=== PATIENT | female | born 1980 | race African-American/Black ===

== ENCOUNTER 2017-11-14 16:18 | Emergency (ER) | payer OTHER, SELFPAY ==
[2017-11-14] MEDS: METHOCARBAMOL 500 MG TAB PO (19:10)
[2017-11-14] MEDS: IBUPROFEN 800 MG TAB PO (19:10)
== END 2017-11-14 19:17 | disposition home or self-care (01) ==
LOC: M ED 16:18
DX: S39.012A Strain of muscle, fascia and tendon of lower back, initial encounter (principal); X50.0XXA Overexertion from strenuous movement or load, initial encounter; Y92.099 Unspecified place in other non-institutional residence as the place of occurrence of the external cause; Y93.F9 Activity, other caregiving; Y99.0 Civilian activity done for income or pay; Z79.899 Other long term (current) drug therapy
CPT/HCPCS: 99282

== ENCOUNTER → 2018-02-16 | Outpatient (REF) | payer OTHER ==
[~2018-02-16] MED LIST: IBUP80TA PO; METF500T13 PO; ROBA500T PO
[2018-02-16 22:18] LABS: APPEARANCE, URINE CLOUDY (CLEAR); BACTERIA, URINE AUTO 1+ (NEGATIVE); BILIRUBIN, URINE AUTO NEGATIVE (NEGATIVE); BLOOD, URINE BLOOD 1+ (NEGATIVE); COLOR, URINE YELLOW (YELLOW); GLUCOSE, URINE (UA) AUTO NEGATIVE (NEGATIVE); KETONE, URINE AUTO NEGATIVE (NEGATIVE); LEUKOCYTE ESTERASE, URINE AUTO 2+ (NEGATIVE); NITRITE, URINE AUTO NEGATIVE (NEGATIVE); PROTEIN, URINE AUTO 1+ mg/dL (NEGATIVE); RBC, URINE AUTO 35 /HPF (0-3); SPECIFIC GRAVITY URINE AUTO 1.017 (1.002-1.035); SQUAMOUS EPITHELIAL CELL UR AU 5 /HPF (0-6); WBC, URINE AUTO 135 /HPF (0-3)
== END ==
LOC: M LAB REF 10:08
PROVIDERS: ATTEND Physician Assistant
DX: N39.0 Urinary tract infection, site not specified (principal)

== ENCOUNTER → 2018-05-16 | Outpatient (REF) | payer OTHER, MEDICAID ==
[2018-05-16 13:23] LABS: BASO # 0.1 10^3/uL (0.0-0.2); BASO % 0.5 % (0.0-1.0); EOS # 0.2 10^3/uL (0.0-0.50); HEMATOCRIT 42.7 % (36.0-47.0); HEMOGLOBIN 13.9 g/dl (12.0-15.5); LYMPH # 3.2 10^3/uL (1.5-4.5); LYMPH % 20.3 % (24.0-44.0); MEAN CORPUSCULAR HEMOGLOBIN 29.8 pg (27.0-33.0); MEAN CORPUSCULAR HGB CONC 32.6 g/dl (32.0-36.5); MEAN CORPUSCULAR VOLUME 91.4 fl (80.0-96.0); MONO % 6.6 % (0.0-5.0); NEUTROPHILS # 11.1 10^3/uL (1.8-7.7); PLATELET COUNT, AUTOMATED 384 10^3/uL (150-450); RED BLOOD COUNT 4.67 10^6/uL (4.00-5.40); WHITE BLOOD COUNT 15.6 10^3/uL (4.0-10.0)
[2018-05-16 13:38] LABS: ALBUMIN 3.7 GM/DL (3.2-5.2); ALT/SGPT 12 U/L (12-78); BILIRUBIN,TOTAL 0.3 MG/DL (0.2-1.0); BLOOD UREA NITROGEN 11 MG/DL (7-18); CALCIUM LEVEL 8.8 MG/DL (8.5-10.1); CARBON DIOXIDE LEVEL 25 MEQ/L (21-32); CHLORIDE LEVEL 109 MEQ/L (98-107); CHOLESTEROL LEVEL 135 MG/DL (<200); CHOLESTEROL RISK RATIO 2.812 (<5); CREATININE FOR GFR 0.92 MG/DL (0.55-1.30); FREE T4 0.96 NG/DL (0.76-1.46); GLOMERULAR FILTRATION RATE > 60.0 (>60); GLUCOSE, FASTING 227 MG/DL (70-100); HDL CHOLESTEROL 48 MG/DL (>40); LDL CHOLESTEROL 73 MG/DL (<100); NON-HDL-C 87 MG/DL; POTASSIUM SERUM 4.6 MEQ/L (3.5-5.1); SODIUM LEVEL 140 MEQ/L (136-145); THYROID STIMULATING HORMONE 0.797 uIU/ML (0.358-3.740); TOTAL 25(OH) VITAMIN D 11.8 NG/ML (30.0-100.0); TOTAL PROTEIN 6.9 GM/DL (6.4-8.2); TRIGLYCERIDES LEVEL 68 MG/DL (<150)
[2018-05-16 14:16] LABS: HEMOGLOBIN A1c 6.6 %
[2018-05-16 14:38] LABS: APPEARANCE, URINE CLOUDY (CLEAR); BACTERIA, URINE AUTO 2+ (NEGATIVE); BILIRUBIN, URINE AUTO NEGATIVE (NEGATIVE); BLOOD, URINE BLOOD 1+ (NEGATIVE); COLOR, URINE YELLOW (YELLOW); GLUCOSE, URINE (UA) AUTO 2+ mg/dL (NEGATIVE); KETONE, URINE AUTO NEGATIVE (NEGATIVE); LEUKOCYTE ESTERASE, URINE AUTO 3+ (NEGATIVE); MUCUS, URINE LARGE (NEGATIVE); NITRITE, URINE AUTO POSITIVE (NEGATIVE); PROTEIN, URINE AUTO 2+ mg/dL (NEGATIVE); RBC, URINE AUTO 1 /HPF (0-3); SPECIFIC GRAVITY URINE AUTO 1.026 (1.002-1.035); SQUAMOUS EPITHELIAL CELL UR AU 2 /HPF (0-6); URIC ACID CRYSTALS LARGE; UROBILINOGEN, URINE AUTO 0.2 mg/dL (0.0-2.0); WBC, URINE AUTO TNTC /HPF (0-3)
== END ==
LOC: M LAB REF 12:32
PROVIDERS: ATTEND Family Medicine
DX: Z13.228 Encounter for screening for other metabolic disorders (principal)

== ENCOUNTER → 2018-05-19 | Outpatient (REF) | payer OTHER, MEDICAID | LOC: M LAB REF 13:00 | PROVIDERS: ATTEND Family Medicine | DX: N39.0 Urinary tract infection, site not specified (principal) ==

== ENCOUNTER → 2018-06-13 | Outpatient (REF) | payer OTHER, MEDICAID ==
[2018-06-13 13:00] LABS: APPEARANCE, URINE CLOUDY (CLEAR); BACTERIA, URINE AUTO 1+ (NEGATIVE); BILIRUBIN, URINE AUTO NEGATIVE (NEGATIVE); BLOOD, URINE BLOOD 2+ (NEGATIVE); COLOR, URINE YELLOW (YELLOW); GLUCOSE, URINE (UA) AUTO NEGATIVE (NEGATIVE); KETONE, URINE AUTO NEGATIVE (NEGATIVE); LEUKOCYTE ESTERASE, URINE AUTO 3+ (NEGATIVE); MUCUS, URINE SMALL (NEGATIVE); NITRITE, URINE AUTO NEGATIVE (NEGATIVE); PROTEIN, URINE AUTO NEGATIVE (NEGATIVE); RBC, URINE AUTO 78 /HPF (0-3); SPECIFIC GRAVITY URINE AUTO 1.019 (1.002-1.035); SQUAMOUS EPITHELIAL CELL UR AU 15 /HPF (0-6); WBC, URINE AUTO 112 /HPF (0-3)
== END ==
LOC: M LAB REF 12:28
PROVIDERS: ATTEND Family Medicine
DX: N30.20 Other chronic cystitis without hematuria (principal)

== ENCOUNTER 2018-07-18 20:02 | Emergency (ER) | payer MEDICAID, OTHER ==
[~2018-07-18] VITALS: Ht 180.3 cm; Wt 90.9 kg
[2018-07-18] MEDS ORDERED: NS 1,000 ML IV ONE (22:45)
[2018-07-18 23:10] LABS: BASO # 0.1 10^3/uL (0.0-0.2); BASO % 0.4 % (0.0-1.0); EOS # 0.2 10^3/uL (0.0-0.50); EOS % 1.3 % (0.0-3.0); HEMATOCRIT 41.9 % (36.0-47.0); HEMOGLOBIN 14.2 g/dl (12.0-15.5); LYMPH # 3.5 10^3/uL (1.5-4.5); MEAN CORPUSCULAR HEMOGLOBIN 30.9 pg (27.0-33.0); MEAN CORPUSCULAR HGB CONC 33.9 g/dl (32.0-36.5); MEAN CORPUSCULAR VOLUME 91.1 fl (80.0-96.0); MONO # 1.7 10^3/uL (0.0-0.8); MONO % 10.4 % (0.0-5.0); NEUTROPHILS % 66.4 % (36.0-66.0); PLATELET COUNT, AUTOMATED 315 10^3/uL (150-450); WHITE BLOOD COUNT 16.6 10^3/uL (4.0-10.0)
[2018-07-18 23:12] LABS: VENOUS BASE EXCESS -3.7 (-2.0-2.0); VENOUS HCO3 20.1 MEQ/L (23.0-27.0); VENOUS O2 SATURATION 96.3 % (60.0-80.0); VENOUS PARTIAL PRESSURE O2 78.1 mmHg (30.0-50.0); VENOUS PH 7.402 UNITS (7.330-7.430); VENOUS STANDARD HCO3 21.4 MEQ/L; VENOUS TOTAL CO2 21.1 MEQ/L (24.0-28.0)
[2018-07-18] MEDS ORDERED: metFORMIN (GLUCOPHAGE) 500 MG TAB PO ONE (23:15)
[2018-07-18] MEDS ORDERED: BACTRIM 160MG/800MG DS TAB PO ONE (23:15)
[2018-07-18] MEDS ORDERED: BACT800T5 PO (23:21)
[2018-07-18] MEDS ORDERED: METF500T13 PO (23:21)
[2018-07-18 23:31] LABS: ALBUMIN 3.6 GM/DL (3.2-5.2); ALT/SGPT 14 U/L (12-78); BILIRUBIN,DIRECT < 0.1 MG/DL (0.0-0.2); BILIRUBIN,TOTAL 0.4 MG/DL (0.2-1.0); BLOOD UREA NITROGEN 10 MG/DL (7-18); CALCIUM LEVEL 8.6 MG/DL (8.5-10.1); CARBON DIOXIDE LEVEL 23 MEQ/L (21-32); CHLORIDE LEVEL 108 MEQ/L (98-107); CREATININE FOR GFR 0.76 MG/DL (0.55-1.30); GLOMERULAR FILTRATION RATE > 60.0 (>60); GLUCOSE, FASTING 222 MG/DL (70-100); HEMOGLOBIN A1c 8.7 %; LIPASE 183 U/L (73-393); POTASSIUM SERUM 3.8 MEQ/L (3.5-5.1); SODIUM LEVEL 139 MEQ/L (136-145); TOTAL PROTEIN 7.1 GM/DL (6.4-8.2)
[2018-07-18 23:49] VITALS: BP 100/57
== END 2018-07-18 23:54 | disposition home or self-care (01) ==
LOC: M ED 20:02
DX: N39.0 Urinary tract infection, site not specified (principal); E11.65 Type 2 diabetes mellitus with hyperglycemia; R11.0 Nausea; I10 Essential (primary) hypertension; F17.200 Nicotine dependence, unspecified, uncomplicated

== ENCOUNTER → 2018-08-02 | Outpatient (CLI) | payer OTHER ==
[~2018-08-02] MED LIST changes: +BACT800T5 PO
--- NOTE | 2018-08-02 10:00 | REP ---
RENAL AND BLADDER ULTRASOUND: Real-time sonographic evaluation of the kidneys performed. The kidneys are normal in size and echotexture, right kidney measuring 12.9 x 5.9 x 4.3 cm and left kidney 12.9 x 4.7 x 6.8 cm. There is no hydronephrosis bilaterally. In the lower pole of the left kidney, a large echogenic shadowing structure measures approximately 3.5 x 1.1 x 1.6 cm, which may represent a large calculus. No other renal stones are seen. There is no definite mass. Urinary bladder is not well distended and not well evaluated. No gross calculi are seen in the lumen. IMPRESSION: No hydronephrosis. Large structure in the lower pole collecting system likely represents a large calculus 3.5 x 1.1 x 1.6 cm. Electronically Signed by Kye Correa MD 08/02/2018 03:14 P
== END ==
LOC: M RAD 07:12
PROVIDERS: ATTEND Nurse Practitioner Family
DX: N39.0 Urinary tract infection, site not specified (principal); N28.89 Other specified disorders of kidney and ureter

== ENCOUNTER → 2018-08-04 | Outpatient (CLI) | payer OTHER ==
--- NOTE | 2018-08-04 11:39 | REP ---
URINARY BLADDER ULTRASOUND: Real-time sonographic evaluation of the bladder performed. The bladder measures 5.3 x 8.6 x 7.0 cm for a total volume of 208 mL. No bladder mass or calculus is seen. There are bilateral ureteral jets in the urinary bladder with Doppler color evaluation. After voiding, the postvoid residual is 8.5 mL, 4.1% of the original volume. IMPRESSION: Unremarkable bladder ultrasound as discussed above with very mild postvoid residual. Electronically Signed by Kye Correa MD 08/04/2018 12:08 P
== END ==
LOC: M RAD 10:35
PROVIDERS: ATTEND Nurse Practitioner Family
DX: N39.0 Urinary tract infection, site not specified (principal)

== ENCOUNTER → 2018-08-18 | Outpatient (REF) | payer OTHER ==
[2018-08-18 17:36] LABS: BASO # 0.1 10^3/uL (0.0-0.2); BASO % 0.6 % (0.0-1.0); EOS # 0.2 10^3/uL (0.0-0.50); HEMATOCRIT 43.9 % (36.0-47.0); HEMOGLOBIN 14.5 g/dl (12.0-15.5); LYMPH # 3.7 10^3/uL (1.5-4.5); LYMPH % 23.4 % (24.0-44.0); MEAN CORPUSCULAR HEMOGLOBIN 30.8 pg (27.0-33.0); MEAN CORPUSCULAR VOLUME 93.2 fl (80.0-96.0); MONO # 1.1 10^3/uL (0.0-0.8); MONO % 6.9 % (0.0-5.0); NEUTROPHILS # 10.6 10^3/uL (1.8-7.7); NEUTROPHILS % 67.7 % (36.0-66.0); PLATELET COUNT, AUTOMATED 354 10^3/uL (150-450); RED BLOOD COUNT 4.71 10^6/uL (4.00-5.40); WHITE BLOOD COUNT 15.7 10^3/uL (4.0-10.0)
[2018-08-18 17:39] LABS: APPEARANCE, URINE CLOUDY (CLEAR); BACTERIA, URINE AUTO 3+ (NEGATIVE); BILIRUBIN, URINE AUTO NEGATIVE (NEGATIVE); BLOOD, URINE BLOOD 2+ (NEGATIVE); COLOR, URINE YELLOW (YELLOW); GLUCOSE, URINE (UA) AUTO NEGATIVE (NEGATIVE); KETONE, URINE AUTO TRACE mg/dL (NEGATIVE); LEUKOCYTE ESTERASE, URINE AUTO 3+ (NEGATIVE); MUCUS, URINE SMALL (NEGATIVE); NITRITE, URINE AUTO POSITIVE (NEGATIVE); PROTEIN, URINE AUTO 1+ mg/dL (NEGATIVE); RBC, URINE AUTO 52 /HPF (0-3); SPECIFIC GRAVITY URINE AUTO 1.018 (1.002-1.035); SQUAMOUS EPITHELIAL CELL UR AU 5 /HPF (0-6); TRIPLE PHOSPHATE CRYSTALS SMALL; UROBILINOGEN, URINE AUTO 0.2 mg/dL (0.0-2.0); WBC, URINE AUTO TNTC /HPF (0-3)
[2018-08-18 17:51] LABS: ALBUMIN 3.7 GM/DL (3.2-5.2); ALT/SGPT 12 U/L (12-78); BILIRUBIN,TOTAL 0.4 MG/DL (0.2-1.0); BLOOD UREA NITROGEN 10 MG/DL (7-18); CALCIUM LEVEL 9.1 MG/DL (8.5-10.1); CARBON DIOXIDE LEVEL 25 MEQ/L (21-32); CHLORIDE LEVEL 113 MEQ/L (98-107); CHOLESTEROL LEVEL 129 MG/DL (<200); CHOLESTEROL RISK RATIO 3.394 (<5); CREATININE FOR GFR 0.87 MG/DL (0.55-1.30); GLOMERULAR FILTRATION RATE > 60.0 (>60); GLUCOSE, FASTING 112 MG/DL (70-100); HDL CHOLESTEROL 38 MG/DL (>40); LDL CHOLESTEROL 81 MG/DL (<100); NON-HDL-C 91 MG/DL; POTASSIUM SERUM 4.2 MEQ/L (3.5-5.1); SODIUM LEVEL 142 MEQ/L (136-145); THYROID STIMULATING HORMONE 0.751 uIU/ML (0.358-3.740); TOTAL 25(OH) VITAMIN D 16.9 NG/ML (30.0-100.0); TRIGLYCERIDES LEVEL 49 MG/DL (<150)
[2018-08-18 17:57] LABS: HEMOGLOBIN A1c 8.4 %
[2018-08-18 18:10] LABS: MAU/CREAT RATIO 71.5 MCG/MG (0.0-30.0)
== END ==
LOC: M LAB REF 16:10
PROVIDERS: ATTEND Family Medicine
DX: E11.9 Type 2 diabetes mellitus without complications (principal)

== ENCOUNTER → 2018-08-29 | Outpatient (REF) | payer OTHER ==
[~2018-08-29] MED LIST changes: +PERCOCET PO; +TRUL0.5I SC
[2018-08-29 13:28] LABS: AMORPHOUS SEDIMENT SMALL (NEGATIVE); APPEARANCE, URINE HAZY (CLEAR); BACTERIA, URINE AUTO 2+ (NEGATIVE); BILIRUBIN, URINE AUTO NEGATIVE (NEGATIVE); BLOOD, URINE BLOOD 3+ (NEGATIVE); COLOR, URINE YELLOW (YELLOW); GLUCOSE, URINE (UA) AUTO NEGATIVE (NEGATIVE); KETONE, URINE AUTO NEGATIVE (NEGATIVE); LEUKOCYTE ESTERASE, URINE AUTO 3+ (NEGATIVE); MUCUS, URINE SMALL (NEGATIVE); NITRITE, URINE AUTO NEGATIVE (NEGATIVE); PROTEIN, URINE AUTO NEGATIVE (NEGATIVE); RBC, URINE AUTO 101 /HPF (0-3); SPECIFIC GRAVITY URINE AUTO 1.014 (1.002-1.035); SQUAMOUS EPITHELIAL CELL UR AU 2 /HPF (0-6); UROBILINOGEN, URINE AUTO 0.2 mg/dL (0.0-2.0); WBC, URINE AUTO 58 /HPF (0-3)
== END ==
LOC: M LAB REF 12:26
PROVIDERS: ATTEND Family Medicine
DX: N39.0 Urinary tract infection, site not specified (principal)

== ENCOUNTER → 2018-08-31 | Outpatient (REF) | payer OTHER ==
[~2018-08-31] MED LIST changes: -PERCOCET PO; -TRUL0.5I SC
[2018-08-31 19:25] LABS: CHLAMYDIA DNA AMPLIFICATION NEGATIVE (NEGATIVE); GC DNA AMPLIFICATION NEGATIVE (NEGATIVE)
[2018-09-05 14:41] LABS: HPV HYBRID CAPTURE II Negative (Negative)
== END ==
LOC: M LAB REF 17:14
PROVIDERS: ATTEND Nurse Practitioner Family
DX: Z11.3 Encounter for screening for infections with a predominantly sexual mode of transmission (principal)

== ENCOUNTER → 2018-09-29 | Outpatient (CLI) | payer OTHER ==
--- NOTE | 2018-09-29 14:30 | REP ---
REASON: History of renal calculi. PRIORS: None. Lung bases are clear. In the left kidney, there is a large, probably developing staghorn calculus. There is minimal left-sided hydronephrosis. In the inferior pole of the right kidney, there is a 4 mm nonobstructing calculus. There is no hydroureter. There are no urinary bladder calcifications. Limited evaluation of the liver, gallbladder, spleen, pancreas, and adrenal glands show no gross abnormalities. There is no free fluid or free air in the abdomen or pelvis. Limited evaluation of the intra-abdominal and intrapelvic bowel loops and their mesenteries show no gross abnormalities. There is a rounded structure in the mid pelvis difficult to evaluate on this noncontrast-enhanced CT possibly representing uterine myomatous changes. Bone window technique through the examination shows the osseous structures to be within normal limits. IMPRESSION: 1. Large left-sided calculus as described above. 2. Tiny nonobstructing right nephrolith as described above. 3. Possible pelvic mass. Pelvic ultrasonography with both transvesical and transvaginal technique should be obtained. Electronically Signed by Nader Luong DO 09/29/2018 02:31 P
== END ==
LOC: M RAD 10:48
PROVIDERS: ATTEND Nurse Practitioner Family
DX: N20.0 Calculus of kidney (principal)

== ENCOUNTER → 2018-10-04 | Outpatient (REF) | payer OTHER | LOC: M SMT 13:19 | PROVIDERS: ATTEND Urology | DX: N39.0 Urinary tract infection, site not specified (principal); N20.0 Calculus of kidney ==

== ENCOUNTER → 2018-10-06 | Outpatient (CLI) | payer OTHER ==
[~2018-10-06] MED LIST changes: +PERCOCET PO; +TRUL0.5I SC
--- NOTE | 2018-10-06 13:53 | REP ---
Pelvic ultrasound including transabdominal, endovaginal and Doppler ultrasound assessment: The study is correlated with the abdomen pelvis CT dated 09/29/2018. The uterus is vertically oriented and normal size measuring 8.1 x 5.6 by 5.9 cm. The endometrium is homogeneous, except that there are two small hypoechoic areas in the endometrium on the left, one anteriorly measuring 8 mm and the other posteriorly measuring 11 mm. These are compatible with small fibroids. The endometrium is not thickened measuring 11 mm. Right ovary: The right ovary is normal size measuring 3.4-0.3 x 3.0 cm. There is no dominant mass or cyst. With color Doppler assessment there is vascular flow in the right ovary. Left ovary: Left ovary is normal size measuring 3.2 x 2.4-0.0 cm. There is no dominant mass or cyst. With color Doppler assessment there is vascular flow in the left ovary. Impression: There are too small uterine fibroids on the left. Otherwise, negative pelvic ultrasound. Electronically Signed by Kye Baer MD 10/06/2018 01:44 P
== END ==
LOC: M RAD 10:58
PROVIDERS: ATTEND Urology
DX: R19.00 Intra-abdominal and pelvic swelling, mass and lump, unspecified site (principal); D25.9 Leiomyoma of uterus, unspecified

== ENCOUNTER → 2018-11-13 | Outpatient (REF) | payer OTHER ==
[2018-11-13 13:30] LABS: ALBUMIN 3.7 GM/DL (3.2-5.2); ALT/SGPT 23 U/L (12-78); BILIRUBIN,TOTAL 0.2 MG/DL (0.2-1.0); BLOOD UREA NITROGEN 13 MG/DL (7-18); CALCIUM LEVEL 9.7 MG/DL (8.5-10.1); CARBON DIOXIDE LEVEL 27 MEQ/L (21-32); CHLORIDE LEVEL 111 MEQ/L (98-107); CHOLESTEROL LEVEL 137 MG/DL (<200); CHOLESTEROL RISK RATIO 3.261 (<5); CREATININE FOR GFR 0.95 MG/DL (0.55-1.30); GLOMERULAR FILTRATION RATE > 60.0 (>60); GLUCOSE, FASTING 96 MG/DL (70-100); HDL CHOLESTEROL 42 MG/DL (>40); LDL CHOLESTEROL 78 MG/DL (<100); NON-HDL-C 95 MG/DL; POTASSIUM SERUM 4.6 MEQ/L (3.5-5.1); SODIUM LEVEL 144 MEQ/L (136-145); TOTAL PROTEIN 7.3 GM/DL (6.4-8.2); TRIGLYCERIDES LEVEL 84 MG/DL (<150)
[2018-11-13 14:42] LABS: HEMOGLOBIN A1c 5.2 %
== END ==
LOC: M LAB REF 12:16
PROVIDERS: ATTEND Family Medicine
DX: E11.9 Type 2 diabetes mellitus without complications (principal)

== ENCOUNTER → 2018-11-13 | Outpatient (CLI) | payer OTHER ==
[2018-11-13 11:10] LABS: BASO # 0.1 10^3/uL (0.0-0.2); BASO % 0.5 % (0.0-1.0); EOS # 0.2 10^3/uL (0.0-0.5); EOS % 1.1 % (0.0-3.0); HEMATOCRIT 41.8 % (36.0-47.0); HEMOGLOBIN 13.7 g/dl (12.0-15.5); LYMPH # 4.1 10^3/uL (1.5-5.0); LYMPH % 23.3 % (24.0-44.0); MEAN CORPUSCULAR HEMOGLOBIN 29.8 pg (27.0-33.0); MEAN CORPUSCULAR HGB CONC 32.8 g/dl (32.0-36.5); MEAN CORPUSCULAR VOLUME 91.1 fl (80.0-96.0); MONO # 1.2 10^3/uL (0.0-0.8); MONO % 6.9 % (0.0-5.0); NEUTROPHILS # 11.9 10^3/uL (1.5-8.5); NEUTROPHILS % 67.6 % (36.0-66.0); PLATELET COUNT, AUTOMATED 462 10^3/uL (150-450); RED BLOOD COUNT 4.59 10^6/uL (4.00-5.40); WHITE BLOOD COUNT 17.6 10^3/uL (4.0-10.0)
[2018-11-13 11:21] LABS: INR 1.03; PARTIAL THROMBOPLASTIN TIME 30.4 SECONDS (25.0-38.4); PROTHROMBIN TIME 13.2 SECONDS (11.8-14.0)
[2018-11-13 11:30] LABS: BLOOD UREA NITROGEN 12 MG/DL (7-18); CALCIUM LEVEL 9.6 MG/DL (8.5-10.1); CARBON DIOXIDE LEVEL 27 MEQ/L (21-32); CHLORIDE LEVEL 107 MEQ/L (98-107); CREATININE FOR GFR 0.88 MG/DL (0.55-1.30); GLOMERULAR FILTRATION RATE > 60.0 (>60); GLUCOSE, FASTING 87 MG/DL (70-100); POTASSIUM SERUM 4.3 MEQ/L (3.5-5.1); SODIUM LEVEL 141 MEQ/L (136-145)
== END ==
LOC: M LAB 10:03
PROVIDERS: ATTEND Urology
DX: Z01.818 Encounter for other preprocedural examination (principal); N39.0 Urinary tract infection, site not specified; N20.0 Calculus of kidney

== ENCOUNTER 2018-11-16 06:58 | Inpatient (IN) | payer OTHER ==
[~2018-11-16] VITALS: Ht 180.3 cm; Wt 99.1 kg
[~2018-11-16 06:58] MED LIST changes: -PERCOCET PO
[2018-11-16] MEDS ORDERED: BACT800T5 PO (07:42)
[2018-11-16] MEDS ORDERED: fentaNYL 100 MCG/2 ML INJECTION (J3010) As Ordered ONE (07:42)
[2018-11-16] MEDS ORDERED: ISOVUE-300 61% 50ML VIAL (Q9967) As Ordered ONE (07:42)
[2018-11-16] MEDS ORDERED: LIDOCAINE 1% MDV 20ML VIAL As Ordered ONE (07:42)
[2018-11-16] MEDS ORDERED: MIDAZOLAM INJ 2 MG/2 ML VIAL (J2250) As Ordered ONE (07:42)
[2018-11-16] MEDS ORDERED: ceFAZolin 1GM INJ (J0690 PER 500MG) As Ordered ONE (07:45)
--- NOTE | 2018-11-16 07:50 | IRHP ---
[facility] IR Pre-Procedure H & P General Date of Service: Nov 16, 2018 Procedure: Same Day Surgery Interval History and Physical I have seen the patient and reviewed last H & P performed within 30 days. There is no significant interval change. History of Present Illness Chief Complaint The patient is a 38-year-old female admitted with a reason for visit of Left Kidney Sone. PRE-PROCEDURE DIAGNOSIS: left kidney stone HEART: normal rate. LUNGS: normal breathing at rest. ASA Classification ASA Classification: I-Healthy Mallampati Score: I NPO: Yes Problems with prior sedation: No Obstructive Sleep Apnea: No Plan moderate sedation Allergies Coded Allergies: No Known Allergies (Unverified , 11/14/17) Home Medications Scheduled Dulaglutide (Trulicity), 1.5 MG SC QWEEK, (Reported) Sulfamethoxazole/Trimethoprim (Bactrim Ds Tablet), 1 TAB PO BID, (Reported) Scheduled PRN Ibuprofen (Ibuprofen), 800 MG PO Q6H PRN for PAIN Discontinued Medications Sulfamethoxazole/Trimethoprim (Bactrim Ds Tablet), 1 TAB PO Q12H Discontinued Reason: Pt states not taking KIMBERLY ROBISON MD Nov 16, 2018 07:50
[2018-11-16] MEDS ORDERED: diphenhydrAMINE INJ 50MG/ML VIAL (J1200) As Ordered ONE (08:09)
--- NOTE | 2018-11-16 08:56 | POST-OPPD ---
Postoperative Procedure Note Date Of Procedure: Nov 16, 2018 Time Of Procedure: 08:55 PREOPERATIVE DIAGNOSIS: left kidney stone POSTOPERATIVE DIAGNOSIS: left kidney stone FINDINGS: left kidney stone PROCEDURE: NephU placement for PCNL access SURGEON: Kameron ANESTHESIA: moderate sedation ESTIMATED BLOOD LOSS: < 5 ml COMPLICATIONS: none POSTOPERATIVE CONDITION: stable KIMBERLY ROBISON MD Nov 16, 2018 08:56
[2018-11-16] MEDS ORDERED: ONDANSETRON 4MG/2ML VIAL (J2405) As Ordered ONE ×2 (09:04→15:19)
[2018-11-16] MEDS ORDERED: PERCOCET 5MG/325MG TAB As Ordered ONE ×2 (09:21→09:42)
[2018-11-16] MEDS ORDERED: PROMETHAZINE INJ 25 MG/ML VIAL (J2550) As Ordered ONE (10:23)
[2018-11-16] MEDS ORDERED: HYDROMORPHONE HCL 0.5 MG/ 0.5 ML SYRINGE (J1170 PER 1) IV PRN ×8 (13:00→21:15)
[2018-11-16] MEDS ORDERED: oxyBUTYnin *DITROPAN XL* 5 MG TABCR PO ONE (14:00)
--- NOTE | 2018-11-16 16:05 | REP ---
IR Percutaneous nephro ureteral stent catheter placement using fluoroscopy guidance. IR nephrostogram and ureterogram. IR PCNL access. IR moderate sedation. Clinical information: Left kidney stone. PCNL tomorrow with laser lithotripsy. Needs access for procedure. Physician: Dr Melo. Procedure: The patient was advised of the benefits, risks and alternatives of the procedure and informed consent was obtained. The time-out was performed with verification of the patient's name, MRN, site of procedure and type of procedure to be performed. The patient was positioned in the prone position on the angiographic table. The site was prepped and draped in the usual sterile fashion. Moderate sedation was performed by the physician including the presence of an independent trained observer who assisted in monitoring the patient's level of consciousness and physiologic status. Following the administration of fentanyl and Versed , the physician spent 45 minutes of face to face time with the patient. A mobile ui designer radiograph reveals staghorn calculus of the left kidney. The anticipated puncture site on the flank was anesthetized with lidocaine. Using fluoroscopy guidance, a lower pole luis was accessed with a 21 gauge Chiba needle. A nephrostogram and ureterogram was performed demonstrating no hydronephrosis or hydroureter. An 018 wire was then advanced into the collecting system. The needle was then exchanged for a non vascular introducer set. A glide wire in conjunction with a glide cath was used to catheterize the augustine ureter down to the bladder using fluoro guidance. Contrast injection confirms location in the collecting system and bladder. The glidewire was exchanged for an Amplatz wire which was advanced under fluoroscopy guidance through the catheter into the bladder. The sheath and catheter were removed. An 8 Finnish nephro ureteral stent catheter was then advanced over the wire into the bladder. The distal pigtail was formed and locked in position. A final nephrostogram ureterogram was performed confirming position of the pigtail in the bladder. No extravasation. The catheter was sutured in position with 2-0 Prolene and a sterile dressing was applied. The patient tolerated the procedure well and was returned to the PRU in stable condition. EBL: < 5 ml. Complications: None. Conclusion: 1. Nephrostogram and ureterogram demonstrate staghorn calculus in the left renal collecting system. 2. Successful left sided nephro ureteral stent catheter placement. Patient to follow up with urology tomorrow for stone procedure. Thank you for this referral. Electronically Signed by Magaly Melo MD 11/16/2018 04:04 P
[2018-11-16] MEDS ORDERED: ONDANSETRON 4MG/2ML VIAL (J2405) IV PRN (17:00)
[2018-11-16] MEDS ORDERED: PERCOCET 5MG/325MG TAB PO PRN ×2 (17:15→20:45)
[2018-11-16] MEDS ORDERED: PROMETHAZINE INJ 25 MG/ML VIAL (J2550) IV PRN (17:15)
[2018-11-16 18:50] VITALS: BP 136/87
[2018-11-16 20:30] VITALS: BP 137/87
[2018-11-16] MEDS: NS 1,000 ML IV SCH (20:34)
[2018-11-16 22:00] VITALS: BP 140/83
[2018-11-16] MEDS: PERCOCET 5MG/325MG TAB PO PRN (22:01)
[2018-11-17] VITALS (8 sets, daily range): BP systolic 119–140; BP diastolic 72–86
[2018-11-17] MEDS: NS 1,000 ML IV SCH ×4 (04:43→22:30)
[2018-11-17] MEDS ORDERED: oxyBUTYnin *DITROPAN XL* 5 MG TABCR PO SCH (09:00)
[2018-11-17] MEDS ORDERED: ROCURONIUM BROMIDE 50 MG/5 ML VIAL ONE ×2 (09:22→13:09)
[2018-11-17] MEDS ORDERED: PROPOFOL 200 MG/20 ML VIAL ONE (09:22)
[2018-11-17] MEDS ORDERED: dexameTHASONE 4 MG/ML 1ML VIAL (J1100) ONE (09:22)
[2018-11-17] MEDS ORDERED: LIDOCAINE 2% INJ 100 MG/5 ML SDV (FOR ANES.) ONE (09:22)
[2018-11-17] MEDS ORDERED: ONDANSETRON 4MG/2ML VIAL (J2405) ONE (09:22)
[2018-11-17] MEDS ORDERED: fentaNYL 100 MCG/2 ML INJECTION (J3010) ONE ×3 (09:26→13:26)
[2018-11-17] MEDS ORDERED: MIDAZOLAM INJ 2 MG/2 ML VIAL (J2250) ONE (09:26)
[2018-11-17] MEDS ORDERED: CONRAY-60 60% 50ML VIAL (Q9961) ONE (10:41)
--- NOTE | 2018-11-17 11:02 | HPEPDOC ---
General Date of Admission Nov 16, 2018 at 18:00 Date of Service: Nov 17, 2018 Chief Complaint The patient is a 38-year-old female admitted with a reason for visit of Left Kidney Sone. History of Present Illness This is a 38 y/o F w/ a large staghorn left kidney stone, here for a left percutaneous nephrolithotomy (PCNL). She underwent successful left nephroureteral stent placement yesterday in IR and was admitted o/n for pain control. She still has moderate left flank pain at this time but denies fevers or chills. Home Medications Scheduled Dulaglutide (Trulicity) 1.5 Mg/0.5 Ml Pen.injctr, 1.5 MG SC QWEEK, (Reported) Sulfamethoxazole/Trimethoprim (Bactrim Ds Tablet) 1 Each Tablet, 1 TAB PO BID, (Reported) Scheduled PRN Ibuprofen (Ibuprofen) 800 Mg Tab, 800 MG PO Q6H PRN for PAIN Allergies Coded Allergies: No Known Allergies (Unverified , 11/14/17) Past Medical History Medical History DM2 Surgical History b/l carpal tunnel surgery, A-FIB/CHADSVASC A-FIB History Current/History of A-Fib/PAF?: No Current PO Anticoag Therapy: No Age/Risk Factor Scoring CHADSVASC: CHADSVASC Response (Comments) Value Age Risk Factor Age < 65 years old 0 Gender Risk Factor Female 1 Hx of CHF No 0 Hx of HTN No 0 Hx of Stroke/TIA/or VTE No 0 Hx of Diabetes Yes 1 Hx of Vascular Disease No 0 Total 2 Treatment Treatment ordered: NONE Review of Systems Constitutional: Denies: Chills, Fever, Night Sweats Skin: Denies: Rash, Lesions, Breakdown Pulmonary: Denies: Dyspnea, Cough Cardiovascular: Denies: Chest Pain, Palpitations, Orthopnea, Paroxysmal Noc. Dyspnea, Lt Headedness Gastrointestinal: Denies: Nausea, Vomiting Genitourinary: Reports: Hematuria (from NU stent placement) Musculoskeletal: Reports: Back Pain (left flank pain) Neurological: Denies: Weakness, Numbness, Change in speech, Confusion Psych: Reports: Mood Normal; Denies: Depression, Memory Issues Physical Examination General Exam: Positive: Alert, Cooperative, No Acute Distress Chest Exam: Positive: Normal air movement Heart Exam: Positive: Rate Normal Abdomen Exam: Positive: Soft Skin Exam: Positive: Nl turgor and temperature Neuro Exam: Positive: Normal Speech Psych Exam: Positive: Mental status NL, Mood NL Other physical findings left NU stent draining Vital Signs Vital Signs Date Time Temp Pulse Resp B/P (MAP) Pulse Ox O2 Delivery O2 Flow Rate FiO2 11/17/18 09:04 97.3 69 18 136/86 (103) 99 11/16/18 08:40 4 Laboratory Data Labs 24H Laboratory Tests 2 11/17/18 09:29: Bedside Glucose (Misc Panel) 125H Assessment/Plan This is a 38 y/o F w/ a large left kidney stone. Plan / VTE VTE Prophylaxis Ordered?: Yes VTE Exclusion Mechanical Proph: N/A:VTE Prophy Ordered Plan Plan - informed consent signed for left PCNL - jovanny OCOR - NPO - will transfer to urology service postop PALLAVI KAM MD Nov 17, 2018 11:02
[2018-11-17] MEDS ORDERED: ZOSYN 3.375 GM VIAL (J2543) ONE (11:23)
[2018-11-17] MEDS: PIPERACILLIN/TAZOBACTAM SOD 3.375 GM in D5W MINI-BAG PLUS 50 ML IV SCH ×2 (11:50→18:18)
[2018-11-17] MEDS ORDERED: SUGAMMADEX SODIUM 500 MG/5 ML VIAL (BRIDION) ONE (12:22)
[2018-11-17] MEDS ORDERED: KETOROLAC 60 MG/2 ML VIAL (J1885) ONE (12:23)
[2018-11-17] MEDS ORDERED: CONRAY-60 60% 50ML VIAL (Q9961) As Ordered ONE (12:33)
[2018-11-17] MEDS ORDERED: METOCLOPRAMIDE INJ 10MG/2ML VIAL (J2765) IV PRN (15:00)
[2018-11-17] MEDS ORDERED: oxyCODONE 5MG TAB PO PRN (15:00)
[2018-11-17] MEDS ORDERED: ONDANSETRON 4MG/2ML VIAL (J2405) IV PRN (15:00)
[2018-11-17] MEDS ORDERED: fentaNYL 100 MCG/2 ML INJECTION (J3010) IV PRN (15:00)
[2018-11-17] MEDS ORDERED: LR 1,000 ML IV SCH (15:00)
[2018-11-17 15:10] LABS: HEMATOCRIT 38.9 % (36.0-47.0); HEMOGLOBIN 12.8 g/dl (12.0-15.5); MEAN CORPUSCULAR HEMOGLOBIN 30.5 pg (27.0-33.0); MEAN CORPUSCULAR HGB CONC 32.9 g/dl (32.0-36.5); MEAN CORPUSCULAR VOLUME 92.6 fl (80.0-96.0); PLATELET COUNT, AUTOMATED 357 10^3/uL (150-450); WHITE BLOOD COUNT 29.7 10^3/uL (4.0-10.0)
[2018-11-17 15:40] LABS: CALCIUM LEVEL 8.6 MG/DL (8.5-10.1); CREATININE FOR GFR 1.29 MG/DL (0.55-1.30); GLOMERULAR FILTRATION RATE 49.5 (>60); POTASSIUM SERUM 4.3 MEQ/L (3.5-5.1)
--- NOTE | 2018-11-17 16:26 | ROOPDOC ---
[facility] Report Of Operation Report of Operation DATE OF PROCEDURE: 11/17/18 PREPROCEDURE DIAGNOSIS: Left kidney stone. POSTPROCEDURE DIAGNOSIS: Left kidney stone. PROCEDURE: Left percutaneous nephrolithotomy, left antegrade nephrostogram with intraoperative interpretation of images, left ureteral stent placement. SURGEON: Dr. Pallavi Kam MEDIA RECONCILIATION SPECIALIST: None ANESTHESIA: General. OPERATIVE INDICATIONS: This is a 38-year-old female who was recently found to have a large staghorn calculus in her left kidney. It was recommended she be brought to the operating room for the above-listed procedure. DESCRIPTION OF PROCEDURE: The patient brought to the operating room, and general anesthesia was induced. Culture-specific antibiotics were infused. A Rae catheter was then placed under sterile conditions. The patient was then repositioned in the prone position in preparation for a left-sided percutaneous nephrolithotomy. The patient was then prepped and draped in the usual sterile fashion. At this point, the previously-placed left nephroureteral catheter was utilized to advance a Sensor guidewire down the left collecting system and into the bladder. The nephroureteral catheter was then removed, leaving the wire in place. Next, a 2-3 cm transverse incision was made adjacent to the wire. A dual-lumen ureteral catheter was then advanced down into the left renal pelvis. An Amplatz Super Stiff wire was then advanced down the left collecting system and into the bladder. The dual-lumen ureteral catheter was then removed, leaving both wires in place. The Super Stiff wire was then secured to the drape to serve as a safety wire. Next, over the Sensor wire, a balloon dilator was advanced into the left renal pelvis. The balloon was then inflated and left in place for a few seconds. Next, an access sheath was advanced over the balloon into the left renal pelvis. The balloon was then let down and removed, leaving the access sheath and the wire in place. At this point, a nephroscope was introduced into the left renal pelvis. We were able to identify the large left-sided stone. The stone was th en fragmented into several pieces and suctioned out using a CyberWand. After making sure all of the large stone fragments had been removed, I then searched around the kidney thoroughly with a flexible ureteroscope and only one small fragment was found. It was removed with a basket. Once satisfied I had all the stones removed, the nephroscope was taken out, and a #7-Thai x 22-32 cm double J ureteral stent was advanced down into the left collecting system over the wire. The Sensor wire was then removed, and there were adequate curls of the stent in the left renal pelvis and in the bladder. At this point, the access sheath was removed, and the Super Stiff wire was utilized to advance a #18-Thai [place] tip catheter down into the left collecting system. After the tip was within the renal pelvis, the balloon was inflated with about 3 mL of contrast. The [place] tip catheter was also utilized to shoot an antegrade nephrostogram, and this was negative for extravasation. We then secured the [place] tip catheter to the skin with a #2-0 silk suture. This was then connected to gravity drainage and marked the conclusion of the procedure. The patient was placed back in supine position, awakened from anesthesia, and transported to the recovery room in stable condition. ESTIMATED BLOOD LOSS: approximately 50 mL COMPLICATIONS: None. SPECIMENS: Left kidney stone fragments. PLAN: The patient will be admitted to the hospital postoperatively. I will likely remove her left nephrostomy catheter tomorrow, and if her labs are stable and urine output is clear, I will also remove the Rae catheter. She will be discharged home with the stent in place with the plan to remove that in a few weeks in the office. PALLAVI KAM MD Nov 17, 2018 16:25
[2018-11-17] MEDS: PERCOCET 5MG/325MG TAB PO PRN (18:19)
--- NOTE | 2018-11-17 18:43 | REP ---
Antegrade pyelogram: Five views. Tree: Kidney stone. 1 minute 17 seconds of fluoroscopy time is reported. Findings: A sequence of five last image hold fluoroscopically obtained spot radiographs of the abdomen document percutaneous cannulation large tract manipulation of the renal collecting system for percutaneous nephrolithotomy. No laterality markers are visible. Electronically Signed by Kota Coleman MD 11/20/2018 11:23 A
[2018-11-17] MEDS: DOCUSATE SODIUM 100 MG CAP PO SCH (21:40)
[2018-11-18] MEDS: NS 1,000 ML IV SCH ×2 (00:42→06:30)
[2018-11-18] MEDS: PIPERACILLIN/TAZOBACTAM SOD 3.375 GM in D5W MINI-BAG PLUS 50 ML IV SCH ×3 (00:55→11:38)
[2018-11-18 02:00] VITALS: BP 102/71
[2018-11-18] MEDS: PERCOCET 5MG/325MG TAB PO PRN (05:36)
[2018-11-18 06:00] VITALS: BP 126/81
[2018-11-18 06:45] LABS: HEMATOCRIT 32.5 % (36.0-47.0); MEAN CORPUSCULAR HEMOGLOBIN 30.3 pg (27.0-33.0); MEAN CORPUSCULAR HGB CONC 33.2 g/dl (32.0-36.5); MEAN CORPUSCULAR VOLUME 91.3 fl (80.0-96.0); PLATELET COUNT, AUTOMATED 319 10^3/uL (150-450); RED BLOOD COUNT 3.56 10^6/uL (4.00-5.40); WHITE BLOOD COUNT 24.9 10^3/uL (4.0-10.0)
[2018-11-18 07:09] LABS: BLOOD UREA NITROGEN 12 MG/DL (7-18); CARBON DIOXIDE LEVEL 25 MEQ/L (21-32); CHLORIDE LEVEL 114 MEQ/L (98-107); CREATININE FOR GFR 0.85 MG/DL (0.55-1.30); GLOMERULAR FILTRATION RATE > 60.0 (>60); GLUCOSE, FASTING 86 MG/DL (70-100); POTASSIUM SERUM 3.6 MEQ/L (3.5-5.1); SODIUM LEVEL 143 MEQ/L (136-145)
[2018-11-18 07:16] LABS: HEMOGLOBIN 10.8 g/dl (12.0-15.5)
[2018-11-18] MEDS: DOCUSATE SODIUM 100 MG CAP PO SCH (08:59)
[2018-11-18 10:00] VITALS: BP 126/70
--- NOTE | 2018-11-18 10:57 | IPNPDOC ---
Subjective Review oF Systems Chief Complaint The patient is a 38-year-old female admitted with a reason for visit of Left Kidney Sone. Events since Last Encounter No acute events o/n. Pain controlled w/ percocet. No n/v. No f/c/ns. Objective Physical Examination General Exam: Alert, Cooperative, No Acute Distress ABDOMEN EXAM: Soft Skin Exam: Nl turgor and temperature Neuro Exam: Normal Speech Psych Exam: Mental status NL, Mood NL Other physical findings left nephrostomy and bladder catheters draining dark pink urine Vital Signs/I&O Vital Signs Date Time Temp Pulse Resp B/P (MAP) Pulse Ox O2 Delivery O2 Flow Rate FiO2 11/18/18 09:39 18 11/18/18 06:00 98.9 79 126/81 (96) 97 11/16/18 08:40 4 I&O- Last 24 Hours up to 6 AM 11/18/18 06:00 Intake Total 3620 ml Output Total 1680 ml Balance 1940 ml Laboratory Data Labs 24H Laboratory Tests 2 11/17/18 14:14: Bedside Glucose (Misc Panel) 131H 11/17/18 14:54: Nucleated Red Blood Cells % (auto) 0.0, Anion Gap 5L, Glomerular Filtration Rate 49.5L, Blood Urea Nitrogen 14, Creatinine 1.29, Sodium Level 142, Potassium Level 4.3, Chloride Level 112H, Carbon Dioxide Level 25, Calcium Level 8.6 11/17/18 22:16: Bedside Glucose (Misc Panel) 142H 11/18/18 06:16: Nucleated Red Blood Cells % (auto) 0.0, Anion Gap 4L, Glomerular Filtration Rate > 60.0, Blood Urea Nitrogen 12, Creatinine 0.85, Sodium Level 143, Potassium Level 3.6, Chloride Level 114H, Carbon Dioxide Level 25, Calcium Level 8.0L CBC/BMP Laboratory Tests 11/17/18 14:54 Red Blood Count 4.20, Mean Corpuscular Volume 92.6, Mean Corpuscular Hemoglobin 30.5, Mean Corpuscular Hemoglobin Concent 32.9, Red Cell Distribution Width 13.8, Calcium Level 8.6 11/18/18 06:16 Red Blood Count 3.56 L, Mean Corpuscular Volume 91.3, Mean Corpuscular Hemoglobin 30.3, Mean Corpuscular Hemoglobin Concent 33.2, Red Cell Distribution Width 13.8, Calcium Level 8.0 L FSBS Laboratory Tests Test 11/17/18 14:14 11/17/18 22:16 Range/Units Bedside Glucose (Misc Panel) 131 142 70-105 MG/DL Assessment/Plan Date Seen The patient was seen on 11/18/18. Patient Summary This is a 38 y/o F POD1 s/p left PCNL. She is doing well. Labs are w/i acceptable limits. Plan/VTE VTE Prophylaxis Ordered?: Yes VTE Exclusion Mechanical Proph: N/A:VTE Prophy Ordered Plan/Urinary Catheter Urinary Catheter: D/C Rae Plan - left nephrostomy catheter removed - d/c bladder catheter if no increase in hematuria 30 minutes after nephrostomy catheter removed - percocet prn pain - plan discharge home today assuming no sign of increased bleeding from nephrostomy catheter removal PALLAVI KAM MD Nov 18, 2018 10:57
[2018-11-18] MEDS ORDERED: PERCOCET PO (11:05)
--- NOTE | 2018-11-19 19:00 | DSES ---
DATE OF ADMISSION: 11/16/2018 DATE OF DISCHARGE: 11/18/2018 ADMISSION DIAGNOSIS: Left kidney stone. DISCHARGE DIAGNOSIS: Left kidney stone. ADMITTING PHYSICIAN: Dr. Melo DISCHARGING PHYSICIAN: Dr. Pasquale Cano PROCEDURES PERFORMED: Left percutaneous nephroureteral stent placement on 11/16/2018 and a left percutaneous nephrolithotomy on 11/17/2018. HISTORY OF PRESENT ILLNESS: This is a 38-year-old female with a large left staghorn stone, who was recommended to undergo the above listed procedures for treatment. She was brought to the hospital on 11/16/2018 for left percutaneous nephroureteral stent placement and due to moderate postprocedural pain, she was kept in the hospital overnight. The next day, she was brought to the operating room for a left percutaneous nephrolithotomy. HOSPITAL COURSE: The patient was admitted to the hospital on 11/16/2018 after having her left percutaneous nephroureteral stent placed. It was originally intended for her to be discharged home, but due to significant postprocedural pain she was kept in the hospital overnight. The next day she was brought to the operating room for a left percutaneous nephrolithotomy. After that procedure was done, her pain was much better controlled. By postoperative day one from her left percutaneous nephrolithotomy, she was ambulating well and tolerating a regular diet. All of her laboratories were within normal limits except for her white blood cell count was elevated and that was expected given that she had two procedures done. She was afebrile. Her pain was well controlled. I therefore removed her left nephrostomy catheter on postoperative day 1. She has not had any increased hematuria after that was done and therefore her ureteral catheter was removed as well. She was then discharged home after she voided with the plan for her to followup in the clinic in 3 to 4 weeks for stent removal.
== END 2018-11-18 13:50 | disposition home or self-care (01) | DRG 441 ==
LOC: M IRPRO 06:58 → INTOOBSV 18:00 → M MSPAV 18:00 → OBSVTOIN 18:00
PROVIDERS: ADMIT Radiology Diagnostic Radiology; ATTEND Urology
PROC: BT12YZZ Fluoroscopy of Left Kidney using Other Contrast (ICD-10-PCS; 2018-11-16)
PROC: 0T7B3DZ Dilation of Bladder with Intraluminal Device, Percutaneous Approach (ICD-10-PCS; principal; 2018-11-16 08:00)
PROC: 0TC13ZZ Extirpation of Matter from Left Kidney, Percutaneous Approach (ICD-10-PCS; 2018-11-17)
DX: N20.0 Calculus of kidney (principal)

== ENCOUNTER → 2019-01-08 | Outpatient (REF) | payer OTHER ==
[~2019-01-08] MED LIST changes: +PERCOCET PO
[2019-01-08 19:42] LABS: APPEARANCE, URINE HAZY (CLEAR); BACTERIA, URINE AUTO 1+ (NEGATIVE); BILIRUBIN, URINE AUTO NEGATIVE (NEGATIVE); BLOOD, URINE BLOOD NEGATIVE (NEGATIVE); COLOR, URINE STRAW (YELLOW); GLUCOSE, URINE (UA) AUTO NEGATIVE (NEGATIVE); KETONE, URINE AUTO NEGATIVE (NEGATIVE); LEUKOCYTE ESTERASE, URINE AUTO 2+ (NEGATIVE); MUCUS, URINE SMALL (NEGATIVE); NITRITE, URINE AUTO NEGATIVE (NEGATIVE); PROTEIN, URINE AUTO NEGATIVE (NEGATIVE); RBC, URINE AUTO 1 /HPF (0-3); SPECIFIC GRAVITY URINE AUTO 1.005 (1.002-1.035); SQUAMOUS EPITHELIAL CELL UR AU 4 /HPF (0-6); UROBILINOGEN, URINE AUTO 0.2 mg/dL (0.0-2.0); WBC, URINE AUTO 5 /HPF (0-3)
== END ==
LOC: M SMT 17:10
PROVIDERS: ATTEND Nurse Practitioner Family
DX: R32 Unspecified urinary incontinence (principal)